=== PATIENT | female | born 1995 | race African-American/Black ===

== ENCOUNTER 2021-06-06 00:30 | Emergency (ER) | payer OTHER | END 2021-06-06 01:50 | disposition home or self-care (01) | LOC: FER 00:30 | DX: T18.198A Other foreign object in esophagus causing other injury, initial encounter (principal) | CPT/HCPCS: 36415; 80048; 85025; 96372; 99283; J1100; J1610; J7030 ==

== ENCOUNTER 2021-06-06 13:01 | Emergency (ER) | payer OTHER ==
[2021-06-06 15:09] LABS: BASOPHIL 1.1 % (0-2); EOSINOPHIL 0.6 % (0-5); HCT 30.3 % (37.0-47.0); LYMPHOCYTE 19.9 % (15-48); MCH 16.7 pg (25.0-31.0); MCHC 26.4 g/dL (32.0-36.0); MCV 63.1 fL (78.0-100.0); MONOCYTE 5.6 % (0-12); NEUTROPHIL 72.3 % (41-80); NRBC 0; PLT 235 K/uL (150-400); WBC 6.6 K/uL (4.0-10.5)
[2021-06-06 15:24] LABS: BUN/CREAT RATIO (CALC) 11.1 RATIO; CREATININE 0.81 mg/dL (0.51-0.95); POTASSIUM 3.7 mmol/L (3.5-5.1)
== END 2021-06-06 16:25 | disposition home or self-care (01) ==
LOC: FER 13:01
PROVIDERS: Nurse Practitioner Family
DX: T18.9XXA Foreign body of alimentary tract, part unspecified, initial encounter (principal)
CPT/HCPCS: 36415; 80048; 85025; 96372; J1100; J1610; J7030

== ENCOUNTER → 2022-01-07 | Day surgery (SDC) | payer OTHER ==
[~2022-01-07] VITALS: Ht 157.5 cm; Wt 92.5 kg
[~2022-01-07] MED LIST: AMOXICILLIN500 MG PO; METRONIDAZOLE500 MG PO; MOTRIN600 MG PO; PHENERGAN25 M1 PO
[2022-01-07 07:00] LABS: HCG (URINE) SCREEN NEGATIVE (NEGATIVE)
[2022-01-07 07:38] LABS: BASOPHIL 0.9 % (0-2); EOSINOPHIL 1.3 % (0-5); HCT 29.2 % (37.0-47.0); LYMPHOCYTE 30.2 % (15-48); MCH 17.7 pg (25.0-31.0); MCHC 27.4 g/dL (32.0-36.0); MCV 64.5 fL (78.0-100.0); MONOCYTE 7.9 % (0-12); NEUTROPHIL 59.4 % (41-80); NRBC 0; PLT 365 K/uL (150-400); RBC 4.53 M/uL (4.20-5.40); RDW 20.2 % (11.5-14.0); WBC 7.6 K/uL (4.0-10.5)
== END | disposition home or self-care (01) ==
LOC: FAS 12-17 10:00
PROVIDERS: Oral & Maxillofacial Surgery
DX: K01.1 Impacted teeth (principal); K02.9 Dental caries, unspecified; K04.7 Periapical abscess without sinus
CPT/HCPCS: 36415; 84703; 85025; J1100; J1170; J2001; J2250; J2405; J2704; J3010; J7120